=== PATIENT | male | born 1975 | race African-American/Black ===

== ENCOUNTER → 2016-11-07 | Outpatient (CLI) | payer BC ==
--- NOTE | 2016-11-07 17:02 | CR ---
EXAMINATION: Of shoulder HISTORY: Pain COMPARISON: None TECHNIQUE: Reviews FINDINGS/IMPRESSION: There is no acute osseous abnormality, dislocation, or fracture. Postsurgical c hanges, versus distal clavicular osteolysis, are noted at the distal clavicle. The glenohumeral join t space is preserved.
== END ==
LOC: MW.CHORTHO 15:09
PROVIDERS: ATTEND Physician Assistant
DX: M25.512 Pain in left shoulder (principal)
CPT/HCPCS: 73030-26-LT; 73030-LT

== ENCOUNTER 2016-12-04 06:31 | Day surgery (SDC) | payer BC ==
[~2016-12-04 06:31] MED LIST: Lactated Ringers 1,000 ML IV SCH
[2016-12-04] MEDS ORDERED: Lidocaine 1% 50 ML MDV ONE (07:30)
[2016-12-04] MEDS ORDERED: Lidocaine 2% 5 ML SDV ONE (07:40)
[2016-12-04] MEDS ORDERED: Propofol 200 MG/20 ML SDV ONE (07:41)
[2016-12-04] MEDS ORDERED: fentaNYL 100 MCG/2 ML SDV ONE ×2 (07:41→08:17)
[2016-12-04] MEDS ORDERED: Midazolam 1 MG/ML 2 ML SDV ONE (07:41)
[2016-12-04] MEDS ORDERED: ceFAZolin 2 GM in Premix Bag 1 BAG IV SCH (08:00)
--- NOTE | 2016-12-04 08:00 | PCM.PREANE ---
Preanesthetic Assessment - Anesthesia/Transfusion/Family Hx Anesthesia History: No Prior Anesthesia Type of Anesthesia Reaction: Unknown Transfusion History: No Prior Transfusion(s) Intubation History: Unknown - Review of Systems General: No Symptoms Pulmonary: No Symptoms (?asthma), Other (hx of sleep apnea without official diagnosis) Cardiovascular: No Symptoms Gastrointestinal: Other (GERD, on daily antacids) Neurological: No Symptoms, Gait Disturbance (due to knee pain after kneeling) - Physical Assessment NPO Status Date: 12/03/16 NPO Status Time: 23:00 O2 Sat by Pulse Oximetry: 98 Respiratory Rate: 16 Vital Signs: Last Vital Signs Temp 98.1 F 12/04/16 06:46 Pulse 81 12/04/16 06:46 Resp 16 12/04/16 06:46 BP 122/79 12/04/16 06:46 Pulse Ox 98 12/04/16 06:46 Height: 6 ft 1 in Weight: 231 lb ASA Class: 2 Mental Status: Alert & Oriented x3 Airway Class: Mallampati = 1 Dentition: Reports: Normal Dentition Thyro-Mental Finger Breadths: 3 Mouth Opening Finger Breadths: 3 (sloped palate) ROM/Head Extension: Full Lungs: Clear to auscultation, Normal respiratory effort Cardiovascular: Regular Rate, Regular Rhythm - Allergies Allergies/Adverse Reactions: Allergies Allergy/AdvReac Type Severity Reaction Status Date / Time No Known Allergies Allergy Verified 12/02/16 08:25 - Blood Blood Available: No Product(s) Available: None - Anesthesia Plan Pre-Op Medication Ordered: None - Acknowledgements Anesthesia Type Planned: General Anesthesia (probable LMA) Pt an Appropriate Candidate for the Planned Anesthesia: Yes Alternatives and Risks of Anesthesia Discussed w Pt/Guardian: Yes Pt/Guardian Understands and Agrees with Anesthesia Plan: Yes PreAnesthesia Questionnaire - Past Health History Medical/Surgical History: Denies Medical/Surgical History Respiratory History: Reports: Asthma Musculoskeletal History: Reports: Other (see below) Other Musculoskeletal History: rt knee pain Psychiatric History: Reports: Anxiety, Depression - Past Surgical History Head Surgeries/Procedures: Reports: None - SUBSTANCE USE Smoking Status *Q: Current Every Day Smoker Tobacco Use Within Last Twelve Months: Cigarettes Recreational Drug Use History: No - HOME MEDS Home Medications: Home Meds Albuterol [Ventolin HFA] 1 - 2 puff INH ASDIRECTED PRN 12/02/16 [History] Dexlansoprazole [Dexilant] 60 mg PO DAILY 12/02/16 [History] PARoxetine HCl [Paxil] 20 mg PO DAILY 12/02/16 [History] Sildenafil [Viagra] 1 tab PO ASDIRECTED PRN 12/02/16 [History] - CURRENT (IN HOUSE) MEDS Current Meds: Current Medications Hydrocodone Bitart/Acetaminophen ([place] 325-5 Mg) 1 - 2 tab PO Q4H PRN PRN Reason: Pain Lactated Ringer's (Ringers, Lactated) 1,000 mls @ 100 mls/hr IV ASDIRECTED GILLIAN Last Admin: 12/04/16 06:48 Dose: 100 mls/hr Cefazolin Sodium/Dextrose 2 gm (/ Premix) 50 mls @ 100 mls/hr IV ONCALL GILLIAN Discontinued Medications Fentanyl (Sublimaze) Confirm Administered Dose 100 mcg .ROUTE .STK-MED ONE Stop: 12/04/16 07:42 Lidocaine (Xylocaine-Mpf 2%) Confirm Administered Dose 5 ml .ROUTE .STK-MED ONE Stop: 12/04/16 07:41 Lidocaine HCl (Xylocaine 1%) Confirm Administered Dose 50 ml .ROUTE .STK-MED ONE Stop: 12/04/16 07:31 Midazolam HCl (Versed 1 Mg/Ml) Confirm Administered Dose 2 mg .ROUTE .STK-MED ONE Stop: 12/04/16 07:42 Propofol (Diprivan 20 Ml) Confirm Administered Dose 200 mg .ROUTE .STK-MED ONE Stop: 12/04/16 07:42 Preanesthetic Assessment - ANESTHESIA/TRANSFUSION/FAMILY HX Family History of Anesthesia Reaction: No - PHYSICAL ASSESSMENT O2 Sat by Pulse Oximetry: 98 RR: 16 Vital Signs: Last Vital Signs Temp 98.1 F 12/04/16 06:46 Pulse 81 12/04/16 06:46 Resp 16 12/04/16 06:46 BP 122/79 12/04/16 06:46 Pulse Ox 98 12/04/16 06:46 Height: 6 ft 1 in Weight: 231 lb NPO Status Date: 12/03/16 NPO Status Time: 23:00 - ALLERGIES Allergies/Adverse Reactions: Allergies Allergy/AdvReac Type Severity Reaction Status Date / Time No Known Allergies Allergy Verified 12/02/16 08:25
[2016-12-04] MEDS ORDERED: fentaNYL 100 MCG/2 ML SDV IVPUSH PRN (08:23)
[2016-12-04] MEDS ORDERED: Ketorolac 30 MG/ML SDV ONE (08:33)
[2016-12-04] MEDS ORDERED: Ondansetron 4 MG/2 ML SDV ONE (08:33)
[2016-12-04] MEDS ORDERED: Acetaminophen/HYDROcodone 325-5 MG Tab PO PRN (09:00)
--- NOTE | 2016-12-04 09:10 | PCM.POSTAN ---
POST ANESTHESIA ASSESSMENT - MENTAL STATUS Mental Status: alert, oriented - RESPIRATORY Respiratory Status: respiratory rate WNL, airway patent, O2 saturation stable - CARDIOVASCULAR CV Status: pulse rate WNL, blood pressure stable - GASTROINTESTINAL GI Status: no symptoms - POST OP HYDRATION Hydration Status: adequate & stable
--- NOTE | 2016-12-04 09:26 | PCM.OPNOTE ---
- General Post-Op/Procedure Note Date of Surgery/Procedure: 12/04/16 Operative Procedure(s): R knee scope with PMM Post-Op Diagnosis: R knee medial meniscus tear Anesthesia Technique: General LMA Primary Surgeon: Candace Hightower Formula Clerk: Antonieta Mak in mLs: 5 Condition: Good Free Text/Narrative:: tt=20 min #[id number]
--- NOTE | 2016-12-04 09:47 | PCM48HPAN ---
Post Anesthesia Note - EVALUATION WITHIN 48HRS OF ANESTHETIC Vital Signs in Normal Range: Yes Patient Participated in Evaluation: Yes Respiratory Function Stable: Yes Airway Patent: Yes Cardiovascular Function Stable: Yes Hydration Status Stable: Yes Pain Control Satisfactory: Yes Nausea and Vomiting Control Satisfactory: Yes Mental Status Recovered: Yes
[2016-12-04 16:22] VITALS: BP 128/78
--- NOTE | 2016-12-04 16:58 | OR ---
SURGEON: Candace Hightower MD DATE OF PROCEDURE: 12/04/2016 PREOPERATIVE DIAGNOSIS: Right knee medial meniscus tear. POSTOPERATIVE DIAGNOSIS: Right knee medial meniscus tear. PROCEDURES: Right knee arthroscopy with partial medial meniscectomy. SORTING LIVESTOCK WORKER: Antonieta Mak MD, PGY-2. ANESTHESIA: General. ESTIMATED BLOOD LOSS: 5 mL. TOURNIQUET TIME: 20 minutes. COMPLICATIONS: None. DVT PROPHYLAXIS: Not indicated. IMPLANTS USED: None. BRIEF HISTORY: Yolie is a 41-year-old male, who has had complaint of progressive right knee pain. An MRI did show a tear along the undersurface of the posterior horn of the medial meniscus. He did respond to a diagnostic injection, however, his pain did recur. Due to his lack of response to conservative treatment, I did recommend surgical intervention. The risks and goals of the procedure were discussed with the patient and were documented preoperatively. He agreed to proceed. DESCRIPTION OF PROCEDURE: The patient was properly identified and brought to the operating room. He was transferred from the OR cart and placed on the operating table in supine position. General anesthesia was administered. After adequate anesthesia was obtained, a well-padded tourniquet was applied to the right lower extremity. The right lower extremity was then prepped in standard fashion using ChloraPrep solution. It was then sterilely draped. A time-out was performed to ensure correct site and procedure. Preoperative antibiotics were given. The surgical site had been marked preoperatively. An Esmarch was used to exsanguinate the right lower extremity and the tourniquet was inflated to 250 mmHg. A lateral portal arthrotomy was established. Blunt trocar and cannula were introduced into the suprapatellar pouch. Camera, inflow, and outflow were assembled. The suprapatellar pouch showed no signs of synovitis. The patellofemoral joint was visualized. No significant degenerative changes were noted. The patella appeared to track centrally. I then extended down the lateral and medial gutter. No loose bodies were identified. I then entered the medial compartment. A medial portal arthrotomy was established. A blunt probe was inserted. The medial meniscus was then probed. As I probed the posterior horn of the meniscus, there was a large undersurface tear which allowed instability of the medial meniscus to be pulled forward into the joint. Using a combination of biters and shaver, this tear was resected back to a stable remnant. The meniscus was again probed and found to be stable. 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 I then entered the notch. Both the ACL and PCL were visualized and probed and found to be intact. I then entered the lateral compartment. The lateral meniscus was extensively probed and found to be stable. No tears were noted. The lateral tibial plateau showed evidence of grade 2 chondromalacia diffusely. No degenerative changes were noted along the lateral femoral condyle. Instruments were then removed from the knee. The portal sites were closed with 3-0 nylon. Lidocaine 1% was injected along the portal tract. Xeroform gauze was placed over the wound and a bulky dressing was applied. Tourniquet was then deflated. He was awakened from his anesthetic and transferred back to the operating room cart. He was brought to recovery room in stable condition. All needle and sponge counts were correct. DEVAN / BRI /[id number]
== END 2016-12-04 10:20 | disposition home or self-care (01) ==
LOC: MW.SDS 06:31
PROVIDERS: ATTEND Orthopaedic Surgery
PROC: 0SBC4ZZ Excision of Right Knee Joint, Percutaneous Endoscopic Approach (ICD-10-PCS; principal; 2016-12-04)
DX: S83.241A Other tear of medial meniscus, current injury, right knee, initial encounter (principal); M94.261 Chondromalacia, right knee; K21.9 Gastro-esophageal reflux disease without esophagitis; J45.909 Unspecified asthma, uncomplicated; F41.9 Anxiety disorder, unspecified; F32.9 Major depressive disorder, single episode, unspecified; F17.210 Nicotine dependence, cigarettes, uncomplicated; Z79.899 Other long term (current) drug therapy
CPT/HCPCS: 29881; 88304; A9270; J1885; J2250; J2405; J3010; J7120; 01400; J2704

== ENCOUNTER 2024-03-13 12:45 | Emergency (ER) | payer BC, OTHER ==
[2024-03-13] MEDS: oxyCODONE 5 MG Tab PO STA (16:37)
[2024-03-13] MEDS: Acetaminophen 500 MG Tab PO STA (16:38)
[2024-03-13 16:55] VITALS: BP 146/86; PULSE 91
== END 2024-03-13 17:00 | disposition home or self-care (01) ==
LOC: MW.ED 12:45
DX: S43.52XA Sprain of left acromioclavicular joint, initial encounter (principal); S49.92XA Unspecified injury of left shoulder and upper arm, initial encounter; J45.909 Unspecified asthma, uncomplicated; Z75.8 Other problems related to medical facilities and other health care; Z79.899 Other long term (current) drug therapy; X50.1XXA Overexertion from prolonged static or awkward postures, initial encounter
CPT/HCPCS: 73030; 73060; 73080; 99284; A9270; 99283

== ENCOUNTER 2024-10-02 22:18 | Emergency (ER) | payer MEDICAID ==
[2024-10-03 00:51] VITALS: BP 135/79
[2024-10-03 01:13] VITALS: PULSE 92
== END 2024-10-03 01:14 ==
LOC: MW.ED 22:18
DX: Z02.89 Encounter for other administrative examinations (principal); J45.909 Unspecified asthma, uncomplicated; Z79.51 Long term (current) use of inhaled steroids; Z79.899 Other long term (current) drug therapy
CPT/HCPCS: 82947; 99283

== ENCOUNTER 2024-11-18 00:38 | Emergency (ER) | payer MEDICAID ==
[2024-11-18] MEDS: Lidocaine 2% 5 ML SDV INJECT ONE (01:00)
[2024-11-18 01:12] VITALS: BP 108/75; PULSE 94
== END 2024-11-18 01:22 | disposition home or self-care (01) ==
LOC: MW.ED 00:38
DX: S61.212A Laceration without foreign body of right middle finger without damage to nail, initial encounter (principal); J45.909 Unspecified asthma, uncomplicated; Z79.84 Long term (current) use of oral hypoglycemic drugs; Z79.899 Other long term (current) drug therapy; W26.0XXA Contact with knife, initial encounter
CPT/HCPCS: 12002; 99282; J2003

== ENCOUNTER 2024-11-19 20:54 | Emergency (ER) | payer MEDICAID ==
[2024-11-19] MEDS: Ibuprofen 800 MG Tab PO ONE (22:12)
[2024-11-19 22:44] VITALS: BP 132/90; PULSE 70
== END 2024-11-19 22:19 | disposition home or self-care (01) ==
LOC: MW.ED 20:54
DX: S61.212D Laceration without foreign body of right middle finger without damage to nail, subsequent encounter (principal); E11.9 Type 2 diabetes mellitus without complications; Z79.84 Long term (current) use of oral hypoglycemic drugs; W26.0XXD Contact with knife, subsequent encounter
CPT/HCPCS: 99282; A9270